=== PATIENT | male | born 1955 | race Caucasian/White ===

== ENCOUNTER → 2018-03-15 | Outpatient (CLI) | payer BC | END | disposition home or self-care (01) | LOC: LAB 14:56 → MERGE 14:56 | PROVIDERS: ATTEND Urology | DX: Z12.5 Encounter for screening for malignant neoplasm of prostate (principal); R97.20 Elevated prostate specific antigen [PSA] | CPT/HCPCS: G0103 ==

== ENCOUNTER 2021-05-18 13:36 | Emergency (ER) | payer BC ==
[~2021-05-18] VITALS: Ht 167.6 cm; Wt 94.8 kg
[2021-05-18] MEDS ORDERED: IPRATRPIUM/ALBUTEROL 0.5/2.5MG 3 ML NEBU. ONE (13:40)
[2021-05-18] MEDS ORDERED: DEXAMETHASONE SOD PHOS 10 MG/ML VIAL. ONE (13:41)
[2021-05-18] MEDS ORDERED: DEXAMETHASONE SOD PHOS 10 MG/ML VIAL. IV ONE (13:45)
[2021-05-18] MEDS ORDERED: IPRATRPIUM/ALBUTEROL 0.5/2.5MG 3 ML NEBU. NEB ONE ×2 (13:45)
[2021-05-18] MEDS ORDERED: AZITHROMYCIN 500 MG in IV NORMAL SALINE 250ML 250 ML IV ONE (14:00)
--- NOTE | 2021-05-18 14:05 | EKG ---
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
[2021-05-18 14:10] LABS: BASO % 0 % (0-3); EOS % 0 % (0-3); HEMOGLOBIN 12.1 g/dL (13.0-17.5); LYMPH % 6 % (24-48); MEAN CORPUSCULAR HEMOGLOBIN 27 pg (25-35); MEAN CORPUSCULAR HGB CONC 34 g/dL (31-37); MEAN CORPUSCULAR VOLUME 80 fL (79-100); MONO # 0.8 x10^3/uL (0.0-1.1); MONO % 5 % (0-9); NEUT # 14.3 x10^3uL (1.8-7.7); NEUT % 89 % (31-73); PLATELET COUNT 289 x10^3/uL (140-400); RED BLOOD COUNT 4.51 x10^6/uL (4.30-5.70); RED CELL DISTRIBUTION WIDTH 15.1 % (11.5-14.5); WHITE BLOOD COUNT 16.1 x10^3/uL (4.0-11.0)
[2021-05-18 14:12] LABS: CREATININE 1.9 mg/dL (0.7-1.3); GFR 35.8; POTASSIUM 4.1 mmol/L (3.5-5.1)
[2021-05-18] MEDS ORDERED: cefTRIAXone SODIUM 1 GM VIAL ONE (14:13)
[2021-05-18] MEDS ORDERED: IV NORMAL SALINE 50ML 50 ML ONE (14:13)
[2021-05-18] MEDS ORDERED: IV NORMAL SALINE 250ML 250 ML ONE (14:13)
[2021-05-18] MEDS ORDERED: AZITHROMYCIN 500 MG VIAL. IV ONE (14:13)
--- NOTE | 2021-05-18 14:20 | RAD ---
Single AP view of the chest. Comparison: None. Indication: Shortness of breath and hypoxia Findings: The heart is not enlarged. There is no pneumothorax or effusion. Peripheral interstitial opacities a re identified. Impression: 1. Peripheral interstitial opacities suggest atypical infection such as Covid. Electronically signed by: Waylon Washington MD (05/18/2021 2:17 PM) [facility]
[2021-05-18 14:25] LABS: ALBUMIN 2.8 g/dL (3.4-5.0); ALBUMIN/GLOBULIN RATIO 0.6 (1.0-1.7); TOTAL BILIRUBIN 0.5 mg/dL (0.2-1.0); TOTAL PROTEIN 7.6 g/dL (6.4-8.2)
[2021-05-18] MEDS ORDERED: IV NORMAL SALINE 1,000ML 1,000 ML IV ONE (14:30)
[2021-05-18 14:55] LABS: BGAS PH 7.42 (7.35-7.46)
--- NOTE | 2021-05-18 15:33 | PHYS DOC ---
Past History Past Medical History: Asthma, High Cholesterol, Hypertension Past Surgical History: No Surgical History General Adult EDM: Chief Complaint: SHORTNESS OF BREATH HPI: HPI: Patient is a 65 year old male who presents with 3 days of diaphoresis, shortness of breath, lightheadedness. Has been progressively more fatigued over this time. Brought in by EMS. O2 sats 8289 on nonrebreather at 15 L/min. History is limited by patient shortness of breath. Denies any chest pain, leg swelling. Has not been vaccinated for Covid. Denies any Covid contacts. Review of Systems: Review of Systems: Constitutional: Denies fever or chills Eyes: Denies change in visual acuity HENT: Denies nasal congestion or sore throat Respiratory: Denies cough or shortness of breath Cardiovascular: Denies chest pain or edema GI: Denies abdominal pain, nausea, vomiting, bloody stools or diarrhea : Denies dysuria Musculoskeletal: Denies back pain or joint pain Integument: Denies rash Neurologic: Denies headache, focal weakness or sensory changes Endocrine: Denies polyuria or polydipsia Lymphatic: Denies swollen glands Psychiatric: Denies depression or anxiety Current Medications: Current Meds: Current Medications Medications (Trade) Dose Ordered Sig/Tate Start Time Stop Time Status Last Admin Dose Admin Albuterol/ Ipratropium (Duoneb) 3 ml 1X ONCE 05/18/21 13:45 05/18/21 13:49 DC 05/18/21 13:45 3 ML Azithromycin (Zithromax) 500 mg STK-MED ONCE 05/18/21 14:13 05/18/21 14:13 DC Azithromycin 500 mg/Sodium Chloride 250 ml @ 250 mls/hr 1X ONCE 05/18/21 14:00 05/18/21 14:59 DC 05/18/21 14:21 250 MLS/HR Ceftriaxone Sodium 1 gm/ Sodium Chloride 50 ml @ 100 mls/hr 1X ONCE 05/18/21 14:00 05/18/21 14:29 DC 05/18/21 14:16 100 MLS/HR Ceftriaxone Sodium (Rocephin) 1 gm STK-MED ONCE 05/18/21 14:13 05/18/21 14:13 DC Dexamethasone Sodium Phosphate (Decadron) 6 mg 1X ONCE 05/18/21 13:45 05/18/21 13:49 DC 7/26/21 13:45 6 MG Sodium Chloride 1,000 ml @ 1,000 mls/hr 1X ONCE 05/18/21 14:30 05/18/21 15:29 05/18/21 14:20 1,000 MLS/HR Allergies: Allergies: Allergies Coded Allergies Type Severity Reaction Last Updated Verified codeine Allergy Unknown 05/18/21 Yes Physical Exam: PE: Constitutional: Well developed, well nourished, no acute distress, non-toxic appearance. [] HENT: Normocephalic, atraumatic, bilateral external ears normal, oropharynx moist, no oral exudates, nose normal. [] Eyes: PERRLA, EOMI, conjunctiva normal, no discharge. [] Neck: Normal range of motion, no tenderness, supple, no stridor. [] Cardiovascular:Heart rate regular rhythm, no murmur [] Lungs & Thorax: Bilateral breath sounds clear to auscultation [] Abdomen: Bowel sounds normal, soft, no tenderness, no masses, no pulsatile masses. [] Skin: Warm, dry, no erythema, no rash. [] Back: No tenderness, no CVA tenderness. [] Extremities: No tenderness, no cyanosis, no clubbing, ROM intact, no edema. [] Neurologic: Alert and oriented X 3, normal motor function, normal sensory function, no focal deficits noted. [] Psychologic: Affect normal, judgement normal, mood normal. [] Current Patient Data: Labs: Laboratory Tests Test 05/18/21 13:40 05/18/21 14:54 White Blood Count 16.1 x10^3/uL (4.0-11.0) H Red Blood Count 4.51 x10^6/uL (4.30-5.70) Hemoglobin 12.1 g/dL (13.0-17.5) L Hematocrit 36.0 % (39.0-53.0) L Mean Corpuscular Volume 80 fL (79-100) Mean Corpuscular Hemoglobin 27 pg (25-35) Mean Corpuscular Hemoglobin Concent 34 g/dL (31-37) Red Cell Distribution Width 15.1 % (11.5-14.5) H Platelet Count 289 x10^3/uL (140-400) Neutrophils (%) (Auto) 89 % (31-73) H Lymphocytes (%) (Auto) 6 % (24-48) L Monocytes (%) (Auto) 5 % (0-9) Eosinophils (%) (Auto) 0 % (0-3) Basophils (%) (Auto) 0 % (0-3) Neutrophils # (Auto) 14.3 x10^3uL (1.8-7.7) H Lymphocytes # (Auto) 1.0 x10^3/uL (1.0-4.8) Monocytes # (Auto) 0.8 x10^3/uL (0.0-1.1) Eosinophils # (Auto) 0.0 x10^3/uL (0.0-0.7) Basophils # (Auto) 0.0 x10^3/uL (0.0-0.2) Sodium Level 138 mmol/L (136-145) Potassium Level 4.1 mmol/L (3.5-5.1) Chloride Level 101 mmol/L (98-107) Carbon Dioxide Level 23 mmol/L (21-32) Anion Gap 14 (6-14) Blood Urea Nitrogen 35 mg/dL (8-26) H Creatinine 1.9 mg/dL (0.7-1.3) H Estimated GFR (Cockcroft-Gault) 35.8 BUN/Creatinine Ratio 18 (6-20) Glucose Level 458 mg/dL (70-99) H Lactic Acid Level 2.7 mmol/L (0.4-2.0) H Calcium Level 8.0 mg/dL (8.5-10.1) L Total Bilirubin 0.5 mg/dL (0.2-1.0) Aspartate Amino Transferase (AST) 56 U/L (15-37) H Alanine Aminotransferase (ALT) 90 U/L (16-63) H Alkaline Phosphatase 102 U/L (46-116) Troponin I Quantitative < 0.017 ng/mL (0-0.055) FT-Eik-R-Type Natriuretic Peptide 454 pg/mL (0-124) H Total Protein 7.6 g/dL (6.4-8.2) Albumin 2.8 g/dL (3.4-5.0) L Albumin/Globulin Ratio 0.6 (1.0-1.7) L Blood pH 7.42 (7.35-7.46) Blood Gas PCO2 27 mmHg (35-46) L Blood Gas PO2 84 mmHg (80-100) Blood Gas HCO3 18 mmol/L (21-28) L Arterial Bld O2 Saturation (Calc) 97 % (92-99) FiO2 100 % Vital Signs: Vital Signs Date Time Temp Pulse Resp B/P (MAP) Pulse Ox O2 Delivery O2 Flow Rate FiO2 05/18/21 14:51 65 16 127/67 (87) 97 BiPAP/CPAP 05/18/21 13:38 98.3 15.0 EKG: EKG: Sinus rhythm. Inferior Q waves. T wave inversion in lead III. No other identifiable acute ischemic changes. [] Radiology/Procedures: Radiology/Procedures: CXR\[address] [address] IMAGING REPORT Signed PATIENT: BATSHEVA ROMAN ACCOUNT: [id number] : 1955 LOCATION: ER AGE: 65 SEX: M EXAM STATUS: REG ER ORD. PHYSICIAN: NELSON FRANCIS MD REASON: sob, hypoxia, hx asthma PROCEDURE: CHEST AP ONLY Single AP view of the chest. Comparison: None. Indication: Shortness of breath and hypoxia Findings: The heart is not enlarged. There is no pneumothorax or effusion. Peripheral interstitial opacities are identified. Impression: 1. Peripheral interstitial opacities suggest atypical infection such as Covid. Electronically signed by: Waylon Washington MD (05/18/2021 2:17 PM) [facility] DICTATED AND SIGNED BY: WAYLON WASHINGTON MD DATE: 05/18/21 1416 CC: NELSON FRANCIS MD; SALIMA DEGROOT ~MTH0 0 [] Heart Score: C/O Chest Pain: N/A Risk Factors: Risk Factors: DM, Current or recent (<one month) smoker, HTN, HLP, family history of CAD, obesity. Risk Scores: Score 0 - 3: 2.5% MACE over next 6 weeks - Discharge Home Score 4 - 6: 20.3% MACE over next 6 weeks - Admit for Clinical Observation Score 7 - 10: 72.7% MACE over next 6 weeks - Early Invasive Strategies Course & Med Decision Making: Course & Med Decision Making Pertinent Labs and Imaging studies reviewed. (See chart for details) Patient is 65-year-old with reported history of asthma, HLD, HTN, diabetes who presents with shortness of breath, diaphoresis, and lightheadedness for the past 3 days. Prehospital hypoxic with EMS even on NRB was 82-89% at 15 L/min. He is in respiratory distress as he came to the ED. He had expiratory wheezes bilaterally. He was given duo nebs and steroids (dexamethasone 6mg) and transition to BiPAP quickly. He tolerated the BiPAP well and his been satting in the mid 90s. He has had low BPs, with MAP is in the mid 60s. He has been given fluid resuscitation and IV antibiotics for concern for sepsis. Received ceftriaxone and azithromycin. He is not had any recent hospitalizations or antibiotics. Chest x-ray shows peripheral opacities, concerning for pneumonia. He is unvaccinated and was swabbed for Covid. No known Covid contacts. He is on 100% FiO2 on BiPAP and his PaO2 was in the 80s indicating ARDS. Fortunately his pH was normal. Patient will need transfer to higher level of care. Will discuss with hospitalist [facility]. Accepted by Dr. Sims to the ICU at [place]. Will be PUI. Martinez Disclaimer: Juan Disclaimer: This electronic medical record was generated, in whole or in part, using a voice recognition dictation system. Departure Departure: Impression: Primary Impression: ARDS (adult respiratory distress syndrome) Additional Impression: Sepsis with acute hypoxic respiratory failure Disposition: 02 SHORT TERM HOSPITAL Condition: STABLE Referrals: SALIMA DEGROOT (PCP) NELSON FRANCIS MD May 18, 2021 15:33
[2021-05-18 18:48] VITALS: BP 104/57
== END 2021-05-18 19:37 | disposition short-term general hospital (02) ==
LOC: ER 13:36
DX: U07.1 COVID-19 (principal); A41.9 Sepsis, unspecified organism; R65.20 Severe sepsis without septic shock; J96.01 Acute respiratory failure with hypoxia; J45.909 Unspecified asthma, uncomplicated; E78.00 Pure hypercholesterolemia, unspecified; I10 Essential (primary) hypertension; Z88.5 Allergy status to narcotic agent
CPT/HCPCS: 36415; 36600; 71045; 80053; 82803; 83605; 83880; 84484; 85025; 87015; 87040; 87077; 87205; 93005; 94640; 94660; 96365; 96375; 99285; J0456; J0696; J1100; J7030; J7050; U0003